=== PATIENT | female | born 1930 | race Caucasian/White ===

== ENCOUNTER 2017-08-23 20:50 | Emergency (ER) | payer MEDICARE, OTHER ==
[~2017-08-23] VITALS: Ht 154.9 cm; Wt 65.8 kg
[~2017-08-23 20:50] MED LIST: ALPR0.5T PO; ASPI81TA2 PO; BISA5TAB10 PO; EZET10TA PO; FENO135C PO; FURO-145 PO; MECL25TA3 PO; METO50TA3 PO; PROP20TA7 PO; SIMV40TA5 PO
--- NOTE | 2017-08-23 21:00 | NUR ---
PT BIB RA WITH A C/O GLF WITH LUE PAIN/INJURY. PT IS GERMAN SPEAKING ONLY. PT IS ON THE MONITOR AND CONTINUOUS PULSE OX.
[2017-08-23] MEDS ORDERED: ONDANSETRON HCL/PF 4 MG/2 ML VIAL ONE (21:10)
[2017-08-23] MEDS ORDERED: FENTANYL PF 100MCG/2ML AMPUL ONE (21:11)
[2017-08-23] MEDS ORDERED: FENTANYL PF 100MCG/2ML AMPUL IV ONE ×2 (21:30→22:00)
[2017-08-23] MEDS ORDERED: ONDANSETRON HCL/PF 4 MG/2 ML VIAL IVP ONE (21:30)
--- NOTE | 2017-08-23 21:30 | NUR ---
XRAY IN PROGRESS AT THE BEDSIDE.
--- NOTE | 2017-08-23 21:41 | NUR ---
HOLDING XRAY. PT TO RECEIVE MORE PAIN MEDICATION. PT IS NOT TOLERATING XRAY WELL. DR. HENRY IS AT THE BEDSIDE SPEAKING TO THE PT'S FAMILY.
--- NOTE | 2017-08-23 21:50 | NUR ---
XRAY IN PROGRESS.
--- NOTE | 2017-08-23 22:30 | NUR ---
PT REC'D A SLING
--- NOTE | 2017-08-23 22:30 | NUR ---
PT REC'D A SUGAR TONG SPLINT TO THE LUE.
--- NOTE | 2017-08-23 22:30 | NUR ---
IV removed. Catheter intact and site benign. Pressure and 4x4 applied to site. No bleeding noted.Patient discharged to home in stable condition. Written and verbal after care instructions given. Patient verbalizes understanding of instruction AND RX. PT'S VSS.
--- NOTE | 2017-08-23 22:35 | NUR ---
pt ambulated with a steady gait. vss. PT'S FAMILY TOOK PT HOME.
[2017-08-23 22:57] VITALS: BP 176/82
== END 2017-08-23 22:35 | disposition home or self-care (01) ==
LOC: ER 20:53
DX: S52.692A Other fracture of lower end of left ulna, initial encounter for closed fracture (principal); S52.592A Other fractures of lower end of left radius, initial encounter for closed fracture; I10 Essential (primary) hypertension; Z79.82 Long term (current) use of aspirin; Z79.899 Other long term (current) drug therapy; W01.0XXA Fall on same level from slipping, tripping and stumbling without subsequent striking against object, initial encounter; Y93.89 Activity, other specified; Y92.89 Other specified places as the place of occurrence of the external cause; Y99.8 Other external cause status
CPT/HCPCS: 73080-TC; 73090-TC; A4606; J2405; J3010; Z7610

== ENCOUNTER 2017-09-08 12:56 | Outpatient (CLI) | payer MEDICARE, OTHER ==
[~2017-09-08 12:56] MED LIST changes: +ASPI-1169 PO; -ASPI81TA2 PO; -EZET10TA PO; +EZET10TA14 PO; +METO50TA16 PO; -METO50TA3 PO
== END 2017-09-08 23:59 | disposition home health service (06) ==
LOC: WOU 12:56
PROVIDERS: ATTEND Specialist
DX: S50.812D Abrasion of left forearm, subsequent encounter (principal); S62.015D Nondisplaced fracture of distal pole of navicular [scaphoid] bone of left wrist, subsequent encounter for fracture with routine healing; X58.XXXD Exposure to other specified factors, subsequent encounter
CPT/HCPCS: A6209 ×3; A6402 ×2; G0463

== ENCOUNTER 2017-09-22 14:45 | Outpatient (CLI) | payer MEDICARE, OTHER | END 2017-09-22 23:59 | disposition home or self-care (01) | LOC: WOU 14:45 | PROVIDERS: ATTEND Specialist | DX: S51.812D Laceration without foreign body of left forearm, subsequent encounter (principal); W19.XXXD Unspecified fall, subsequent encounter; S62.015D Nondisplaced fracture of distal pole of navicular [scaphoid] bone of left wrist, subsequent encounter for fracture with routine healing | CPT/HCPCS: G0463 ==